=== PATIENT | male | born 1965 | race Caucasian/White ===

== ENCOUNTER 2017-07-08 18:05 | Inpatient (IN) | payer MEDICAID ==
[~2017-07-08] VITALS: Ht 170.2 cm; Wt 106.1 kg
[2017-07-08] MEDS ORDERED: ORLI120C22 PO (18:55)
[2017-07-08 19:16] LABS: BASOPHILS % (AUTO) 0.3 % (0.0-2.0); EOSINOPHILS % (AUTO) 1.2 % (1.0-6.0); HEMATOCRIT 41.3 % (41-53); HEMOGLOBIN 13.9 g/dL (13.5-17.5); LYMPHOCYTES # (AUTO) 1.9 K/uL (1.0-4.8); LYMPHOCYTES % (AUTO) 23.4 % (22.0-44.0); MEAN CORPUSCULAR HEMOGLOBIN 30.5 pg (26.0-34.0); MEAN CORPUSCULAR HGB CONC 33.7 G/dL (31.0-37.0); MEAN CORPUSCULAR VOLUME 90 fL (80-100); MONOCYTES # (AUTO) 0.7 K/uL (0.1-1.0); MONOCYTES % (AUTO) 8.1 % (2.0-9.0); NEUTROPHILS # (AUTO) 5.5 K/uL (1.8-7.7); PLATELET COUNT (AUTO) 296 K/uL (150-450); RED BLOOD CELL COUNT(AUTO) 4.57 MIL/uL (4.50-5.90); RED CELL DISTRIBUTION WIDTH 14.6 % (11.5-14.5)
[2017-07-08 19:23] LABS: ANION GAP 14 mmol/L (8-16); CALCIUM, TOTAL 8.2 mg/dL (8.8-10.5); CARBON DIOXIDE 22 mmol/L (22-29); CHLORIDE 108 mmol/L (98-107); CREATININE 1.22 mg/dL (0.60-1.30); GLOMERULAR FILTR. RATE CALC > 60 mL/min (>60); GLUCOSE,RANDOM 115 mg/dL (70-110); SODIUM SERUM 144 mmol/L (136-145); UREA NITROGEN, BLOOD 8 mg/dL (7-18)
[2017-07-08 19:29] LABS: ALANINE AMINOTRANSFERASE 25 U/L (12-78); ALBUMIN 3.3 g/dL (3.4-5.0); ALKALINE PHOSPHATASE 84 U/L (46-116); ASPARTATE AMINOTRANSFERASE 23 U/L (15-37); BILIRUBIN,TOTAL 0.3 mg/dL (0.1-1.0); TOTAL PROTEIN, SERUM 7.7 g/dL (6.4-8.2)
[2017-07-08 20:02] LABS: AMPHET/METH SCREEN,URINE NEGATIVE (NEGATIVE); BARBITURATE SCREEN, URINE NEGATIVE (NEGATIVE); BENZODIAZEPINES SCREEN,URINE NEGATIVE (NEGATIVE); CANNABINOID SCREEN,URINE NEGATIVE (NEGATIVE); COCAINE SCREEN,URINE NEGATIVE (NEGATIVE); METHADONE SCREEN, URINE NEGATIVE (NEGATIVE); OPIATE SCREEN,URINE NEGATIVE (NEGATIVE)
[2017-07-08 20:04] LABS: PHENCYCLIDINE SCREEN,URINE NEGATIVE (NEGATIVE)
[2017-07-09] MEDS ORDERED: HALOPERIDOL 5 MG TABLET PO PRN (03:00)
[2017-07-09] MEDS ORDERED: LORazepam 2 MG TABLET PO PRN (03:00)
[2017-07-09 11:00] VITALS: BP 140/78
[2017-07-09] MEDS ORDERED: POTASSIUM CHLORIDE 20 MEQ ER TABLET PO ONE (16:00)
[2017-07-09 16:13] VITALS: BP 106/69
[2017-07-10 01:28] VITALS: BP 102/60
[2017-07-10] MEDS: THIAMINE HCL 100 MG TABLET PO SCH (08:43)
[2017-07-10 09:43] LABS: CHOL/HDL RATIO 4.8 (4.2-7.3); FREE T4 (FREE THYROXINE) 0.83 ng/dL (0.76-1.46); THYROID STIMULATING HORMONE 1.13 uIU/mL (0.36-3.74)
[2017-07-10 09:57] VITALS: BP 117/77
[2017-07-10 13:06] LABS: FOLATE SERUM 6.5 ng/mL (5.4-)
[2017-07-10 16:00] VITALS: BP 116/76
[2017-07-10] MEDS: IBUPROFEN 600 MG TABLET PO PRN (16:41)
[2017-07-10] MEDS ORDERED: ACETAMINOPHEN 325 MG TABLET PO PRN (16:45)
[2017-07-10] MEDS: ZOLPIDEM TARTRATE 10 MG TABLET PO PRN (20:30)
[2017-07-11 01:15] VITALS: BP 110/68
[2017-07-11 08:37] VITALS: BP 107/60
[2017-07-11] MEDS: SERTRALINE HCL 100 MG TABLET PO SCH (08:52)
[2017-07-11] MEDS: THIAMINE HCL 100 MG TABLET PO SCH (08:52)
[2017-07-11 14:30] VITALS: BP 119/85
[2017-07-11] MEDS: IBUPROFEN 600 MG TABLET PO PRN ×2 (14:33→20:42)
[2017-07-11 16:27] VITALS: BP 108/75
[2017-07-11] MEDS: ZOLPIDEM TARTRATE 10 MG TABLET PO PRN (20:41)
[2017-07-12 06:43] VITALS: BP 120/81
[2017-07-12] MEDS: THIAMINE HCL 100 MG TABLET PO SCH (08:30)
[2017-07-12] MEDS: SERTRALINE HCL 100 MG TABLET PO SCH (08:30)
[2017-07-12 08:59] VITALS: BP 132/76
[2017-07-12 16:06] VITALS: BP 111/84
[2017-07-12] MEDS: IBUPROFEN 600 MG TABLET PO PRN (16:06)
[2017-07-12] MEDS: ZOLPIDEM TARTRATE 10 MG TABLET PO PRN (20:44)
[2017-07-13 01:36] VITALS: BP 106/70
[2017-07-13 08:25] VITALS: BP 111/73
[2017-07-13] MEDS: SERTRALINE HCL 100 MG TABLET PO SCH (08:37)
[2017-07-13] MEDS: THIAMINE HCL 100 MG TABLET PO SCH (08:37)
[2017-07-13] MEDS ORDERED: SERT100T12 PO (08:45)
[2017-07-13] MEDS ORDERED: THIA100 PO (08:45)
== END 2017-07-13 15:35 | disposition home or self-care (01) | DRG 751 ==
LOC: EMS 18:08 → B2S 07-09 09:12
PROVIDERS: ADMIT Psychiatry & Neurology Psychiatry; ATTEND Psychiatry & Neurology Psychiatry
DX: F33.2 Major depressive disorder, recurrent severe without psychotic features (principal); R45.851 Suicidal ideations; E78.5 Hyperlipidemia, unspecified; E87.6 Hypokalemia; F10.10 Alcohol abuse, uncomplicated; Y90.7 Blood alcohol level of 200-239 mg/100 ml; F17.210 Nicotine dependence, cigarettes, uncomplicated; Z79.899 Other long term (current) drug therapy
CPT/HCPCS: 80074; 82306; 82607; 82746; 83036; 84439; 84443; 99285; G0480